=== PATIENT | female | born 2000 | race Caucasian/White ===

== ENCOUNTER → 2018-06-27 | Outpatient (CLI) | payer OTHER ==
--- NOTE | 2018-06-27 16:50 | Diagnostic Imaging Report ---
PROCEDURE: US Non-ob pelvis comp/trans. TECHNIQUE: Multiple realtime grayscale images were obtained of the pelvis in various projections endovaginally. Transabdominal imaging was also performed. INDICATION: Secondary dysmenorrhea and metrorrhagia. FINDINGS: The uterus measures 6.2 x 3.8 x 2.4 cm. Endometrium is thin at 0.1 cm. No myometrial mass is detected. Ovaries could not be visualized. Ovaries were obscured by bowel gas. No adnexal mass or free fluid is identified. IMPRESSION: Nonvisualized ovaries due to overlying bowel gas. The study is otherwise unremarkable. Dictated by: Dictated on workstation # [id number]
== END ==
LOC: RAD 14:20
PROVIDERS: ATTEND Obstetrics & Gynecology
DX: N94.5 Secondary dysmenorrhea (principal); N92.1 Excessive and frequent menstruation with irregular cycle
CPT/HCPCS: 76830; 76856

== ENCOUNTER → 2020-04-11 | Outpatient (CLI) | payer OTHER ==
--- NOTE | 2020-04-11 16:43 | Diagnostic Imaging Report ---
PROCEDURE: Pelvic comp/transvaginal sonogram. TECHNIQUE: Complete transabdominal and transvaginal pelvic ultrasound was performed. In addition, limited pelvic Doppler was performed. INDICATION: Abnormal uterine bleeding. Uterus is anteverted measuring 6.9 x 3.9 x 4.9 cm. No myometrial mass is detected. Endometrium is 4 mm in thickness. Right ovary measures 2.5 x 1.4 x 2.9 cm and the left ovary measures 2.5 x 1.9 x 1.6 cm. There is blood flow to both ovaries. Ovaries contain small follicles. No adnexal mass or free fluid is detected. IMPRESSION: Unremarkable transabdominal and transvaginal pelvic ultrasound. Dictated by: Dictated on workstation # [id number]
== END ==
LOC: RAD 13:00
PROVIDERS: ATTEND Obstetrics & Gynecology
DX: N93.9 Abnormal uterine and vaginal bleeding, unspecified (principal)
CPT/HCPCS: 76830; 76856